=== PATIENT | female | born 1985 | race American Indian/Alaskan Native ===

== ENCOUNTER 2017-08-13 14:49 | Inpatient (IN) | payer MEDICAID, OTHER ==
[2017-08-13] MEDS ORDERED: ZOFRAN IV ONE (16:27)
[2017-08-13] MEDS ORDERED: MORPHINE IV ONE (16:27)
--- NOTE | 2017-08-13 16:46 | Emergency Department Report ---
ED Fall HPI - General Chief Complaint: Fall Stated Complaint: FALL Time Seen by Provider: 08/13/17 16:18 Source: patient, EMS Mode of arrival: Stretcher Limitations: No Limitations - History of Present Illness Initial Comments: 32-year-old female with no significant past medical history presents to the hospital 38 weeks with complaints of left shoulder pain after falling down 8 stairs. Patient fell landing on her left side. She tried to protect her abdomen and she did not strike her head or lose consciousness. She complains 8/10 pain to the left shoulder. Pain is constant and worse on movement and palpation. She received fentanyl 50 g prior to arrival. She has superficial abrasion to her left lower leg. Patient is right-hand dominant. No previous history of dislocations - Related Data Allergies Allergy/AdvReac Type Severity Reaction Status Date / Time No Known Allergies Allergy Unverified 08/13/17 15:17 ED Review of Systems ROS: Stated complaint: FALL Other details as noted in HPI Comment: All other systems reviewed and negative ED Past Medical Hx - Past Medical History Previous Medical History?: No - Surgical History Past Surgical History?: No - Social History Smoking Status: Never Smoker Substance Use Type: None ED Physical Exam - General Limitations: Other - Other Other exam information: General: No limitations, patient is alert in no acute distress Head exam: Atraumatic, normocephalic Eyes exam: Normal appearance ENT: Moist mucous membrane, normal oropharynx Neck exam: Normal inspection, full range of motion, no meningismus nontender Respiratory exam: Clear to auscultation bilateral, no wheezes, rales, crackles Cardiovascular: Normal rate and rhythm, normal heart sounds Abdomen: abdomen nontender, with normal bowel sounds, no rebound, or guarding. Extremity: Left shoulder tenderness to palpation and painful movement in all directions. 2+ radial pulse Back: Normal Inspection, full range of motion, no tenderness Neurologic: Alert, oriented x3, cranial nerves intact, no motor or sensory deficit Psychiatric: normal affect, normal mood Skin: Superficial abrasion to left lateral lower leg ED Course Vital Signs 08/13/17 08/13/17 08/13/17 15:17 16:12 17:04 Temperature 97.8 F Pulse Rate 72 Respiratory 16 20 20 Rate Blood Pressure 132/78 Blood Pressure [Left] O2 Sat by Pulse 100 Oximetry 08/13/17 08/13/17 08/13/17 17:34 18:22 18:52 Temperature Pulse Rate Respiratory 20 20 22 Rate Blood Pressure Blood Pressure [Left] O2 Sat by Pulse Oximetry 08/13/17 08/13/17 18:54 19:39 Temperature 98 F Pulse Rate 88 Respiratory 22 18 Rate Blood Pressure Blood Pressure 150/92 [Left] O2 Sat by Pulse 100 Oximetry - Consultations Consultation #1: 08/13/17 case d/w Dr Tamara Booth/[facility] s[facility] ([employer]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) prior to 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 and no sedation advised Case d/w Dr Moore (ortho) suggests sedation but may try intrarticular lidocaine - Joint Aspiration/Injection Consent Obtained: written consent Time Out Performed: Yes Indications: injection of medication Side of Body: left Joint Aspirated: shoulder Ultrasound Guidance: No Skin Prep: Povidone-Iodine1% Local Anesthesia Used: Lidocaine 1% Amount of Anesthesia Used (mls): 10 Needle Size Used: Other (21) Syringe Size Used: Other (12) Medication Injected, if any: Lidocaine Amount of Medication Injected (mls): 10 Patient Tolerated Procedure: well Complications: none - Orthopedic Joint Reduction Joint #1 Consent Obtained: written consent Time Out Performed: Yes Side: right Joint Reduction Location: shoulder Analgesia: other (intra-articular lidocaine and IV narcotics) Local Anesthetic Used: Lidocaine 1% Amount of Anesthetic Used (mls): 10 Shoulder Technique Used (if applicable): Milbertha Post-Reduction Neuro Exam: intact Post-Reduction Vascular Exam: intact Post Reduction X-Ray Obtained: Yes Post Reduction X-Ray Results: reduced Splint Applied: Yes Patient Tolerated Procedure: well ED Medical Decision Making - Radiology Data Radiology results: report reviewed read by radiologist inital left shoulder xray FINDINGS: There is an acute anterior dislocation of the left humeral head located medial and inferior to the glenoid rim. There is no evidence of acute fracture. The bony mineralization is normal. Soft tissues are unremarkable. IMPRESSION: Anterior dislocation of the left humeral head. No evidence for fracture. read by me post reduction film left shoulder successful reduction, no fracture - Medical Decision Making fall down stairs only injury reported is left shoulder dislocation Successful reduction in the ED shoulder immobilizer placed Patient denies pain to abdomen Given advanced gestational age and mechanism of injury patient will be transferred to L&D for admission for Observation/monitoring She would need outpatient follow-up with orthopedics after discharge - Differential Diagnosis fracture, contusion, sprain Critical Care Time: No Critical care attestation.: If time is entered above; I have spent that time in minutes in the direct care of this critically ill patient, excluding procedure time. 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
--- NOTE | 2017-08-13 17:44 | XRay Report ---
FINAL REPORT EXAM: XR SHOULDER 2+V LT Technique HISTORY: left shoulder xray TECHNIQUE: AP, Y, and oblique views of the left shoulder PRIORS: None. FINDINGS: There is an acute anterior dislocation of the left humeral head located medial and inferior to the glenoid rim. There is no evidence of acute fracture. The bony mineralization is normal. Soft tissues are unremarkable. IMPRESSION: Anterior dislocation of the left humeral head. No evidence for fracture.
[2017-08-13] MEDS ORDERED: XYLOCAINE 1% 20 mL INFILTRATI ONE (17:56)
[2017-08-13] MEDS ORDERED: DILAUDID IV ONE ×2 (18:09→18:52)
--- NOTE | 2017-08-13 20:38 | XRay Report ---
FINAL REPORT EXAM: XR SHOULDER 1V LT HISTORY: s/p reduction TECHNIQUE: AP view of the left shoulder PRIORS: X-rays left shoulder 08/13/2017 at 2050 hours FINDINGS: There has been successful reduction of the previously seen anterior dislocation. No evidence for fracture is seen. IMPRESSION: Successful reduction of the previous anterior dislocation. No evidence for fracture.
[2017-08-13] MEDS ORDERED: AMBIEN PO PRN (22:52)
[2017-08-13] MEDS ORDERED: LACTATED RINGERS 1,000 ML IV SCH (22:54)
[2017-08-14] MEDS: PERCOCET 5/325 PO PRN ×2 (01:13→07:25)
[2017-08-14 07:13] VITALS: BP 148/90
--- NOTE | 2017-08-14 10:44 | Short Stay Summary ---
Short Stay Documentation Date of service: 08/13/17 Narrative H&P: 32y/o @ 37+6 weeks presents after falling down 8 steps in her home. The patient was found to have a left dislocated shoulder. She denies leakage of fluid or vaginal bleeding. The reports movement. The dislocation was reduced in the ED with local anesthesia. The patient was admitted to L&D for continuous monitoring. OB ultrasound reassuring with BPP 12/11. No evidence of abruption. - History Principal diagnosis: s/p fall Past Medical History: anemia Past Surgical History: No surgical history Social history: - Allergies and Medications Current Medications: Allergies No Known Allergies Allergy (Unverified 08/13/17 15:17) Home Medications Medication Instructions Recorded Confirmed Last Taken Type Pnv No.95/Ferrous Fum/Folic AC 1 each PO DAILY 08/13/17 08/13/17 Unknown History [ Vitamin Tablet] Active Medications Lactated Ringer's (Lactated Ringers) 1,000 mls @ 125 mls/hr IV DIRECT MARIA D Oxycodone/Acetaminophen (Percocet 5/325) 2 tab PO Q6H PRN PRN Reason: Pain, Moderate (4-6) Last Admin: 08/14/17 07:25 Dose: 2 tab Zolpidem Tartrate (Ambien) 10 mg PO QHS PRN PRN Reason: Insomnia - Physical exam General appearance: mild distress Integumentary: no rash HEENT: Atraumatic Lungs: Clear to auscultation Heart: Regular rate Gastrointestinal: normal Female Genitourinary: deferred Rectal Exam: deferred - Hospital course Hospital course: See HPI. After reduction of the dislocation. The patient was monitored overnight with continuous EFM. She denied any vaginal bleeding or leakage of fluid. The patient was discharged with labor precautions and FKC. - Disposition Condition at discharge: Stable - Discharge Diagnoses (1) 38 weeks gestation of Status: Acute (2) Anterior dislocation of left shoulder Status: Acute (3) Fall down stairs Status: Acute Comment: continue FKC and labor precautions Short Stay Discharge Plan Activity: fall precautions Diet: regular Additional Instructions: followup with Ellen Kong CNM this week Prescriptions: oxyCODONE /ACETAMINOPHEN [Percocet 5/325] 1 tab PO Q6HR PRN #30 tablet PRN Reason: Pain
--- NOTE | 2017-08-14 11:14 | Ultrasound Report ---
BIOPHYSICAL PROFILE: INDICATION: Followup fall. COMPARISON: None similar. TECHNIQUE: Transabdominal ultrasound with Doppler interrogation. 2 - breathing movements 2 - movements 2 - posture and tone 2 - Qualitative amniotic fluid volume 8 - TOTAL SCORE OF POSSIBLE 8 Heart Rate (bpm) 149 CONCLUSION: Findings, as above.
--- NOTE | 2017-08-14 11:16 | Ultrasound Report ---
OB LIMITED INDICATION: Status post fall. Dislocated right shoulder. Evaluate for abruption. COMPARISON: None similar. TECHNIQUE: Transabdominal grayscale ultrasound with Doppler interrogation. Gestation: Conrad Position: Cephalic Amniotic Fluid: WNL (7-24 cm) NITO = 17.4 cm Placenta: Anterior; no evidence of abruption. Placental Grade: I Heart Rate: 149 BPM CONCLUSION: Findings, as above.
== END 2017-08-14 12:00 | disposition home or self-care (01) | DRG 781 ==
LOC: ED 14:49 → LD 20:34
PROVIDERS: ADMIT Obstetrics & Gynecology; ATTEND Obstetrics & Gynecology
PROC: 3E0U3BZ Introduction of Anesthetic Agent into Joints, Percutaneous Approach (ICD-10-PCS; principal; 2017-08-13)
PROC: 0RSKXZZ Reposition Left Shoulder Joint, External Approach (ICD-10-PCS; 2017-08-13)
DX: O26.893 Other specified pregnancy related conditions, third trimester (principal); S43.015A Anterior dislocation of left humerus, initial encounter; S80.812A Abrasion, left lower leg, initial encounter; W10.8XXA Fall (on) (from) other stairs and steps, initial encounter; Z3A.38 38 weeks gestation of pregnancy; Y93.89 Activity, other specified; Y92.098 Other place in other non-institutional residence as the place of occurrence of the external cause; Y99.8 Other external cause status
CPT/HCPCS: 76815; 76819; 96374; 96375; J1170; J2270; J2405; J7120

== ENCOUNTER 2019-03-22 20:43 | Emergency (ER) | payer BC, OTHER ==
--- NOTE | 2019-03-22 20:49 | Emergency Department Report ---
Blank Doc - Documentation Documentation: 33-year-old female that presents with body aches, headache, and dizziness. Also has cough and other URI. This initial assessment/diagnostic orders/clinical plan/treatment(s) is/are subject to change based on patient's health status, clinical progression and re- assessment by fellow clinical providers in the ED. Further treatment and workup at subsequent clinical providers discretion. Patient/guardians urged not to elope from the ED as their condition may be serious if not clinically assessed and managed. Initial orders include: 1- Patient sent to [facility] for further evaluation and treatment 2- flu swab 3- EKG 4- labs
[2019-03-22 21:29] LABS: Basophils % (Auto) 0.4 % (0.0-1.8); Eosinophils # (Auto) 0.1 K/mm3 (0.0-0.4); Eosinophils % (Auto) 0.6 % (0.0-4.3); Hematocrit 33.5 % (30.3-42.9); Hemoglobin 10.8 gm/dl (10.1-14.3); Lymphocytes # (Auto) 1.2 K/mm3 (1.2-5.4); Lymphocytes % (Auto) 12.6 % (13.4-35.0); Mean Corpuscular HGB Conc 32 % (30-34); Mean Corpuscular Volume 74 fl (79-97); Monocytes # (Auto) 0.5 K/mm3 (0.0-0.8); Monocytes % (Auto) 4.9 % (0.0-7.3); Platelet Count 257 K/mm3 (140-440); Red Blood Count 4.51 M/mm3 (3.65-5.03); Red Cell Distribution Width 15.1 % (13.2-15.2)
[2019-03-22 21:31] LABS: BUN/Creatinine Ratio 12; Blood Urea Nitrogen 6 mg/dL (7-17); Calcium 8.8 mg/dL (8.4-10.2); Hemolysis Index 14
[2019-03-22] MEDS ORDERED: SODIUM CHLORIDE 0.9% 1000 ML 1,000 ML IV ONE (21:43)
[2019-03-22] MEDS ORDERED: ACETAMINOPHEN 500 MG TAB PO ONE (21:43)
--- NOTE | 2019-03-22 21:56 | Emergency Department Report ---
- General Chief Complaint: Dizziness Stated Complaint: DIZZINESS X 3 DAYS/CP/FEELING COLD Time Seen by Provider: 03/22/19 20:49 Source: patient Mode of arrival: Ambulatory Limitations: No Limitations - History of Present Illness Initial Comments: 33-year-old female, 18 weeks , presents to ED with URI symptoms 1 week. Patient reports headache, sore throat, productive cough, fever and chills. Patient states she has been taking Robitussin DM without any improvement. Don quevedo denies any abdominal pain and vaginal bleeding. Reports decreased appetite, hasn't eaten all day. OB: Ellen Kong MD Complaint: fever, cough, sore throat -: week(s) (1) Severity: moderate Quality: aching Consistency: constant Improves With: nothing Associated Symptoms: fever, chills, headache, sore throat, cough. denies: nausea, vomiting, diarrhea Treatments Prior to Arrival: "cold medicine" - Related Data Home Medications Medication Instructions Recorded Confirmed Last Taken Pnv No.95/Ferrous Fum/Folic AC 1 each PO DAILY 08/13/17 08/13/17 Unknown [ Vitamin Tablet] Previous Rx's Medication Instructions Recorded Last Taken Type oxyCODONE /ACETAMINOPHEN [Percocet 1 tab PO Q6HR PRN #30 tablet 08/14/17 Unknown Rx 5/325] Allergies Allergy/AdvReac Type Severity Reaction Status Date / Time No Known Allergies Allergy Unverified 08/13/17 15:17 ED Review of Systems ROS: Stated complaint: DIZZINESS X 3 DAYS/CP/FEELING COLD Other details as noted in HPI Comment: All other systems reviewed and negative Constitutional: chills, fever ENT: throat pain Respiratory: cough Cardiovascular: chest pain (with cough) Gastrointestinal: denies: abdominal pain, nausea, vomiting Neurological: headache ED Past Medical Hx - Past Medical History Previous Medical History?: Yes Hx Hypertension: Yes Hx Congestive Heart Failure: No Hx Diabetes: No Hx Deep Vein Thrombosis: No Hx Renal Disease: No Hx Sickle Cell Disease: No Hx Seizures: No Hx Asthma: No Hx COPD: No - Surgical History Past Surgical History?: Yes Additional Surgical History: X 1 - Social History Smoking Status: Never Smoker Substance Use Type: None - Medications Home Medications: Home Medications Medication Instructions Recorded Confirmed Last Taken Type Pnv No.95/Ferrous Fum/Folic AC 1 each PO DAILY 08/13/17 08/13/17 Unknown History [ Vitamin Tablet] oxyCODONE /ACETAMINOPHEN [Percocet 1 tab PO Q6HR PRN #30 tablet 08/14/17 Unknown Rx 5/325] ED Physical Exam - General Limitations: No Limitations General appearance: alert, in no apparent distress - Head Head exam: Present: atraumatic, normocephalic - Eye Eye exam: Present: normal appearance, EOMI. Absent: conjunctival injection - ENT ENT exam: Present: normal orophraynx, mucous membranes moist - Neck Neck exam: Present: normal inspection, full ROM. Absent: meningismus - Respiratory Respiratory exam: Present: normal lung sounds bilaterally, chest wall tenderness. Absent: respiratory distress - Cardiovascular Cardiovascular Exam: Present: normal rhythm, tachycardia - GI/Abdominal GI/Abdominal exam: Present: soft, other (gravid abdomen). Absent: tenderness - Extremities Exam Extremities exam: Present: normal inspection - Neurological Exam Neurological exam: Present: alert, oriented X3, CN II-XII intact. Absent: motor sensory deficit - Psychiatric Psychiatric exam: Present: normal affect, normal mood - Skin Skin exam: Present: warm, dry, intact, normal color ED Course Vital Signs 03/22/19 03/22/19 03/22/19 20:47 20:50 21:53 Temperature 99.3 F 99.3 F Pulse Rate 128 H 128 H Respiratory 18 18 17 Rate Blood Pressure 123/80 123/80 Blood Pressure [Left] O2 Sat by Pulse 100 100 Oximetry 03/22/19 03/22/19 03/22/19 21:56 22:47 23:34 Temperature 100.1 F H 99.4 F Pulse Rate 113 H 115 H Respiratory 17 16 16 Rate Blood Pressure Blood Pressure 122/63 127/77 [Left] O2 Sat by Pulse 99 98 Oximetry 03/23/19 01:05 Temperature Pulse Rate 100 H Respiratory 16 Rate Blood Pressure Blood Pressure 126/73 [Left] O2 Sat by Pulse 99 Oximetry - Reevaluation(s) Reevaluation #1: 03/22/19 23:31 Pt states she is feeling much better following IV fluids and tylenol. Able to ambulate to the bathroom without difficulty. However, pt remains slightly tachycardic. Will administer another bolus. ED Medical Decision Making - Lab Data Result diagrams: 03/22/19 21:04 11/17/19 21:04 - EKG Data -: EKG Interpreted by Me EKG shows normal: sinus rhythm, axis, intervals, QRS complexes, ST-T waves Rate: tachycardia (rate 111) - EKG Data Interpretation: no acute changes - Radiology Data Radiology results: report reviewed, image reviewed - Medical Decision Making 33-year-old female, 18 weeks , presents to ED with URI symptoms 1 week. Denies abdominal pain. Initially tachycardic, low-grade temperature, with normal blood pressure and O2 sats. Labs unremarkable, including negative flu swabs. Chest x-ray negative. Patient was given 2 L bolus of IV fluids and Tylenol. Tachycardia resolved, likely due to dehydration as patient reports she has not been eating due to feeling sick. Patient feeling much better at this time, will discharge home. Return precautions given. Patient advised to take Tylenol for pain, she may continue Robitussin-DM for her cough. - Differential Diagnosis flu, pneumonia, URI Critical care attestation.: If time is entered above; I have spent that time in minutes in the direct care of this critically ill patient, excluding procedure time. ED Disposition Clinical Impression: URI (upper respiratory infection), Dehydration Disposition: DC- TO HOME OR SELFCARE Is pt being admited?: No Condition: Stable Instructions: Upper Respiratory Infection (ED) Referrals: PRIMARY CARE, [Primary Care Provider] - 3-5 Days Time of Disposition: 01:10
--- NOTE | 2019-03-22 22:18 | XRay Report ---
CHEST 2 VIEWS INDICATION / CLINICAL INFORMATION: cough. COMPARISON: None available. FINDINGS: SUPPORT DEVICES: None. HEART / MEDIASTINUM: No significant abnormality. LUNGS / PLEURA: No significant pulmonary or pleural abnormality. No pneumothorax. ADDITIONAL FINDINGS: No significant additional findings. IMPRESSION: 1. No acute findings. Signer Name: Jean Marie Sherman MD Signed: 03/22/2019 10:14 PM Workstation Name: [id number]
[2019-03-23] MEDS ORDERED: SODIUM CHLORIDE 0.9% 1000 ML 1,000 ML IV ONE (00:09)
[2019-03-23 01:06] VITALS: BP 126/73
== END 2019-03-23 01:30 | disposition home or self-care (01) ==
LOC: ED 20:43
DX: J06.9 Acute upper respiratory infection, unspecified (principal); E86.0 Dehydration; I10 Essential (primary) hypertension; Z79.899 Other long term (current) drug therapy
CPT/HCPCS: 36415; 71046; 80048; 85025; 87400; 93005; 93010; 96360; 96361; 99284; J7030